=== PATIENT | female | born 1990 | race Caucasian/White ===

== ENCOUNTER 2016-06-28 17:10 | Emergency (ER) | payer MEDICAID ==
[~2016-06-28] VITALS: Ht 162.6 cm; Wt 75.0 kg
[2016-06-28 17:12] VITALS: BP 121/67; PULSE 79; RESP 16; TEMP 98.3; O2SAT 100
--- NOTE | 2016-06-28 17:18 | PD ---
HPI Chief Complaint: Abdominal Pain Time Seen by Provider: 17:18 Travel History International Travel<30 days: No Contact w/Intl Traveler<30days: No Traveled to known affect area: No History of Present Illness HPI 26-year-old female came into the emergency room with history of some slight cramps in her abdomen, nausea and vomiting yesterday. Nausea and vomiting has stopped today. Patient is 31 weeks . She wanted to be checked and make sure that the was going okay. She tried calling her OB and was told that she could be seen tomorrow. However if she wanted to be seen earlier she should go to the emergency room. She did not appear to be in any distress and vital signs were relatively stable. Patient is A0. She is otherwise a healthy person. No history of fever or chills. No history of spotting or leaking. PFSH Past Medical History Narrative Medical List of her past medical, social, surgical and family history was reviewed from the nursing note. ?: LMP: 31 WEEKS PER PT Social History Tobacco Use: No Allergies-Medications (Allergen,Severity, Reaction): Coded Allergies: No Known Allergies (Unverified , 06/28/16) Comments No known drug allergies. Narrative Medication Patient is on vitamin pills. Review of Systems Except as stated in HPI: all other systems reviewed are Neg Physical Exam Narrative GENERAL: Awake, alert, no obvious distress SKIN: Focused skin assessment warm/dry. HEAD: Atraumatic. Normocephalic. EYES: Pupils equal and round. No scleral icterus. No injection or drainage. ENT: No nasal bleeding or discharge. Mucous membranes pink and moist. NECK: Trachea midline. No JVD. CARDIOVASCULAR: Regular rate and rhythm. No murmur appreciated. RESPIRATORY: No accessory muscle use. Clear to auscultation. Breath sounds equal bilaterally. GASTROINTESTINAL: Abdomen soft, non-tender, nondistended. Hepatic and splenic margins not palpable. Gravid uterus at 30-32 weeks fundal height. : I tried to feel the cervix and it was less than 1 finger breath. MUSCULOSKELETAL: No obvious deformities. No clubbing. No cyanosis. No edema. NEUROLOGICAL: Awake and alert. No obvious cranial nerve deficits. Motor grossly within normal limits. Normal speech. PSYCHIATRIC: Appropriate mood and affect; insight and judgment normal. Data Data Last Documented VS Orders Urinalysis - C+S If Indicated (4/19/17 17:31) Heart Tones (06/28/16 17:31) Labs [facility] Medical Decision Making Medical Screen Exam Complete: Yes Emergency Medical Condition: Yes Medical Record Reviewed: Yes Differential Diagnosis Owen Dickens contractions, UTI Narrative Course 6:15 PM heart tones were 135 bpm. UA appears to be within normal limit. I have tried to reassure the patient and asked her to follow up with her OB tomorrow. Her OB is from [place]. Patient has been instructed to call OB emergently or come to the ER if the pain gets severe and prolonged, spotting, leaking or any other symptoms. She understands. She will be discharged home. Procedures EKG Prior to Arrival: No Diagnosis Primary Impression: Third trimester Referrals: Primary Care Physician Additional Instructions: Please follow-up with your OB tomorrow. Please return to the ER if the contractions get more frequent, severe and prolonged or bleeding or spotting or leaking. Drink lots of fluid, bedrest and no intercourse until OB has cleared you. Med/Other Pt SpecificInfo: No Change to Meds Disposition: 01 DISCHARGE HOME Condition: Stable Marti Steven MD Jun 28, 2016 17:18 Urine WBC 3-5 /hpf Urine Squamous Epithelial > 8 /hpf Cells Urine Bacteria RARE /hpf Urine Mucus FEW /lpf Microscopic Urinalysis Comment CULT NOT INDICATED [facility] Medical Decision Making Medical Screen Exam Complete: Yes Emergency Medical Condition: Yes Medical Record Reviewed: Yes Differential Diagnosis Scott Dickens contractions, UTI Narrative Course 6:15 PM heart tones were 135 bpm. UA appears to be within normal limit. I have tried to reassure the patient and asked her to follow up with her OB tomorrow. Her OB is from [facility]. Patient has been instructed to call emergently or come to the ER if the pain gets severe and prolonged, spotting, leaking or any other symptoms. She understands. She will be discharged home. Procedures EKG Prior to Arrival: No Diagnosis Primary Impression: Third trimester Referrals: Primary Care Physician Additional Instructions: Please follow-up with your OB tomorrow. Please return to the ER if the contractions get more frequent, severe and prolonged or bleeding or spotting or leaking. Drink lots of fluid, bedrest and no intercourse until OB has cleared you. Med/Other Pt SpecificInfo: No Change to Meds Disposition: 01 DISCHARGE HOME Condition: Stable Marti Steven MD Jun 28, 2016 17:18
[2016-06-28 17:44] LABS: BLOOD, URINE NEG (NEG); GLUCOSE,URINE NEG (NEG); KETONE, URINE NEG (NEG); NITRITE,URINE NEG (NEG)
[2016-06-28 17:58] LABS: URINE COLOR YELLOW (YELLW/STRAW)
[2016-06-28 17:59] LABS: BACTERIA, URINE RARE /hpf; COMMENT (UR) CULT NOT INDICATED; CULTURE IF INDICATED CULT NOT INDICATED; MUCUS URINE FEW /lpf (OCC); RBC, URINE 0-3 /hpf (0-3); SQUAMOUS EPITHELIAL CELL URINE > 8 /hpf (0-5)
[2016-06-28 18:32] VITALS: BP 120/62; PULSE 80; RESP 18; O2SAT 100
== END 2016-06-28 18:32 | disposition home or self-care (01) ==
LOC: PHED 17:10
DX: O26.893 Other specified pregnancy related conditions, third trimester (principal); R10.9 Unspecified abdominal pain; Z3A.31 31 weeks gestation of pregnancy
CPT/HCPCS: 81001; 99284